=== PATIENT | male | born 1950 | race Caucasian/White ===

== ENCOUNTER 2023-07-28 07:23 | Outpatient (CLI) | payer MEDICARE, OTHER ==
[2023-07-28 08:43] LABS: BASOPHILS # (AUTO) 0.1 10^3/uL (0.0-0.1); BASOPHILS % (AUTO) 1.2 %; EOSINOPHILS # (AUTO) 0.2 10^3/uL (0.0-0.7); EOSINOPHILS % (AUTO) 3.9 %; HCT - HEMATOCRIT 41.8 % (42.0-52.0); HGB - HEMOGLOBIN 14.3 g/dL (14.0-18.0); LYMPHOCYTES # (AUTO) 1.9 10^3/uL (1.5-3.5); LYMPHOCYTES % (AUTO) 35.9 %; MEAN CORPUSCULAR HEMOGLOBIN 30.7 pg (27.0-31.0); MEAN CORPUSCULAR HGB CONC 34.2 g/dL (32.0-36.0); MEAN CORPUSCULAR VOLUME 89.7 fL (80.0-94.0); MEAN PLATELET VOLUME 10.2 fL (7.4-11.4); MONOCYTES # (AUTO) 0.6 10^3/uL (0.0-1.0); MONOCYTES % (AUTO) 11.6 %; NEUTROPHILS # (AUTO) 2.4 10^3/uL (1.5-6.6); PLT - PLATELET COUNT 182 10^3/uL (130-450); RED BLOOD COUNT 4.66 10^6/uL (4.70-6.10); RED CELL DISTRIBUTION WIDTH 13.1 % (12.0-15.0); WHITE BLOOD COUNT 5.2 x10^3/uL (4.8-10.8)
[2023-07-28 09:16] LABS: % IRON SATURATION 45 % (20-50); ALBUMIN 4.3 g/dL (3.2-5.5); ALBUMIN/GLOBULIN RATIO 1.3 (1.0-2.2); ALKALINE PHOSPHATASE 62 IU/L (42-121); ALT ALANINE AMINOTRANSFERASE 25 IU/L (10-60); AST ASPARTATE AMINOTRANSFERASE 27 IU/L (10-42); BILIRUBIN,TOTAL 0.8 mg/dL (0.2-1.0); BUN - BLOOD UREA NITROGEN 21 mg/dL (6-20); CALCIUM 9.7 mg/dL (8.5-10.3); CARBON DIOXIDE - CO2 25 mmol/L (21-32); CHLORIDE 106 mmol/L (101-111); CHOL/HDL RATIO 5.4 (<5.0); CHOLESTEROL 255 mg/dL; CK- CREATINE KINASE 142 IU/L (30-223); CREATININE 0.7 mg/dL (0.6-1.3); CRP - C-REACTIVE PROTEIN < 0.5 mg/dL (<0.5); GAMMA GLUTAMYL TRANSPEPTIDASE 25 IU/L (9-64); GFR - MDRD 111 (>89); GLUCOSE 96 mg/dL (74-104); HDL CHOLESTEROL 47 mg/dL; IRON 143 ug/dL (50-212); LDL CHOLESTEROL,CALCULATED 179 mg/dL; LDL/HDL RATIO 3.8 (<3.6); POTASSIUM 3.8 mmol/L (3.5-4.5); SODIUM 138 mmol/L (135-145); TOTAL IRON BINDING CAPACITY 318 ug/dL (250-450); TOTAL PROTEIN 7.5 g/dL (6.4-8.9); TRANSFERRIN 227 mg/dL (203-362); TRIGLYCERIDES 146 mg/dL (48-352); VLDL CHOLESTEROL 29 mg/dL
[2023-07-28 09:26] LABS: ESTIMATED AVERAGE GLUCOSE 108 mg/dL (70-100); HEMOGLOBIN A1c% 5.4 % (4.27-6.07)
[2023-07-28 09:30] LABS: THYROID STIMULATING HORMONE 3.99 uIU/mL (0.34-5.60)
[2023-07-28 09:39] LABS: FERRITIN 172.2 ng/mL (23.9-336.2)
[2023-07-29 04:09] LABS: APOLIPOPROTEIN B 141 mg/dL (<90)
[2023-07-29 05:12] LABS: VITAMIN D 25-HYDROXY 34.2 ng/mL (30.0-100.0)
[2023-07-29 08:10] LABS: SEX HORM BINDING GLOB SERUM 56.2 nmol/L (19.3-76.4)
[2023-07-29 17:09] LABS: THYROGLOBULIN ANTIBODY 1.4 IU/mL (0.0-0.9); THYROID PEROXIDASE (TPO) AB 228 IU/mL (0-34)
[2023-07-29 18:07] LABS: ZINC PLASMA OR SERUM 82 ug/dL (44-115)
== END 2023-07-28 07:24 | disposition home or self-care (01) ==
LOC: LAB 07:23
DX: E78.5 Hyperlipidemia, unspecified (principal); M79.2 Neuralgia and neuritis, unspecified; N40.0 Benign prostatic hyperplasia without lower urinary tract symptoms; R60.0 Localized edema; E06.3 Autoimmune thyroiditis; E72.11 Homocystinuria
CPT/HCPCS: 36415; 80053; 80061; 81599; 82172; 82306; 82533; 82550; 82607; 82627; 82728; 82746; 82977; 83036; 83090; 83516; 83525; 83540; 83721; 83735; 84270; 84403; 84439; 84443; 84466; 84481; 84482; 84630; 85025; 85384; 86038; 86140; 86376; 86800